=== PATIENT | male | born 1955 | race Caucasian/White ===

== ENCOUNTER 2024-08-05 16:16 | Inpatient (IN) | payer MEDICARE, OTHER ==
--- NOTE | 2024-08-05 16:43 | ED ---
Fall HPI - General Source: patient, RN notes reviewed, old records reviewed Mode of arrival: wheelchair Limitations: physical limitation <Marielle Palacios - Last Filed: 08/05/24 16:42> <Livan Bah - Last Filed: 08/05/24 23:36> - General Stated Complaint: fall no thinners Time Seen by Provider: 08/05/24 16:42 - History of Present Illness Initial Comments: Quick note: 69-year-old male presented the ER for evaluation of a fall. Family stated a week ago patient reports he fell. Since then family report he has been favoring his right side. While giving patient a shower today they noted bruising to left thigh and elbow. Patient denies head injury or blood thinner use. (Marielle Palacios) Patient is a 69-year-old male presents emergency department complaining of fall, weakness, worsening debility. Brought in by family who are the primary care givers for the patient. Apparently patient has been requiring more ADLs assistance lately and is having a harder time ambulating. He at baseline has a hard time ambulating from prior stroke and uses a walker. He has fallen a few times. Did not hit his head. He currently is at mental status baseline. Family says it is from prior stroke apparently. He otherwise is acting normally. Presents for further evaluation. Originally seen as a quick note and imaging was obtained. He is not on any blood thinners. They did notice bruising of the left thigh and elbow which is why imaging was obtained but ultimately they are looking for placement as they believe they can no longer take care of him. History is all obtained from patient's family member who is a t bedside. (Livan Bah) - Related Data Home Medications Medication Instructions Recorded Confirmed No Known Home Medications 08/05/24 08/05/24 Allergies Allergy/AdvReac Type Severity Reaction Status Date / Time No Known Allergies Allergy Verified 08/05/24 19:44 Review of Systems ROS Other: All systems not noted in ROS Statement are negative. <Marielle Palacios - Last Filed: 08/05/24 16:42> ROS Other: All systems not noted in ROS Statement are negative. <Livan Bah - Last Filed: 08/05/24 23:36> ROS Statement: Those systems with pertinent positive or pertinent negative responses have been documented in the HPI. Review of Systems: CONST: Denies fever EYES: Denies blurry vision ENT: Denies nasal congestion C/V: Denies Chest pain RESP: Denies shortness of breath GI: Denies abdominal pain : Denies dysuria SKIN: Denies rash. MSK: Denies joint pain. NEURO: Denies headache (Livan Bah) General Exam <Marielle Palacios - Last Filed: 08/05/24 16:42> <Livan Bah - Last Filed: 08/05/24 23:36> - General Exam Comments Initial Comments: Visual Physical Exam Vital signs reviewed General: Well-appearing, nontoxic, no acute distress. Resting tremor Head: Normocephalic, atraumatic Eyes: PERRLA, EOMI ENT: Airway patent Chest: Nonlabored breathing Skin: No visual rash, normal skin tone Neuro: Alert and oriented 3 Musculoskeletal: No gross abnormalities (Marielle Palacios) General: Appears in no acute distress. HEAD: Normal with no signs of head trauma. EYES: PERRLA, EOMI, conjunctiva normal, no discharge. Pupils are 3 mm and equal bilaterally. ENT: Hearing grossly intact, normal oropharynx. RESPIRATORY: Clear breath sounds bilaterally. No wheezes, rales, or rhonchi. C/V: Regular rate and rhythm. S1 and S2 auscultated, no edema, peripheral pulses 2+ and intact throughout ABD: Abd is soft, nontender, nondistended EXT: Normal range of motion, no obvious deformity SKIN: No rashes or lesions observed on exposed skin. NEURO: Alert. Nonverbal. No obvious focal deficits. Moving all 4 extremities. Apparently per family this is baseline. (Livan Bah) Course Vital Signs 08/05/24 08/05/24 16:59 22:31 Temperature 98.2 F Pulse Rate 82 79 Respiratory 20 16 Rate Blood Pressure 143/83 132/79 O2 Sat by Pulse 96 95 Oximetry Medical Decision Making <Marielle Palacios - Last Filed: 08/05/24 16:42> - Lab Data Result diagrams: 08/05/24 20:30 08/05/24 20:30 - EKG Data -: EKG Interpreted by Me <Livan Bah - Last Filed: 08/05/24 23:36> - Medical Decision Making I performed the quick note portion of this chart. Electronically signed by Wili Palacios PA-C (Marielle Palacios) Was pt. sent in by a medical professional or institution ([facility], [employer], urgent care, hospital, or snf...) When possible be specific @ -No Did you speak to anyone other than the patient for history (EMS, parent, family, police, friend...)? What history was obtained from this source @ -Patient's family who is at bedside are the primary historians for the patient as he is somewhat nonverbal and cannot provide any sufficient history. Per family, this is baseline for the patient. States it is from prior stroke. Did you review nursing and triage notes (agree or disagree)? Why? @ -I reviewed and agree with nursing and triage notes Were old charts reviewed (outside hosp., previous admission, EMS record, old EKG, old radiological studies, urgent care reports/EKG's, snf records)? Report findings @ -No old charts were reviewed Differential Diagnosis (chest pain, altered mental status, abdominal pain women, abdominal pain men, vaginal bleeding, weakness, fever, dyspnea, syncope, headache, dizziness, GI bleed, back pain, seizure, CVA, palpatations, mental health, musculoskeletal)? @ -Debility, fall, muscle strain, contusion. This list is not all inclusive. EKG interpreted by me (3pts min.). @ -As above X-rays interpreted by me (1pt min.). @ -Chest x-ray, femur x-ray, humerus x-ray, forearm x-ray negative for any obvious acute injury or process. CT interpreted by me (1pt min.). @ -None done U/S interpreted by me (1pt. min.). @ -None done What testing was considered but not performed or refused? (CT, X-rays, U/S, labs)? Why? @ -None What meds were considered but not given or refused? Why? @ -None Did you discuss the management of the patient with other professionals (professionals i.e. [facility], [employer], lab, RT, psych nurse, social work professor, real property appraiser, teacher, chief nursing officer, case managers)? Give summary @ -Discussed with the admitting provider, Dr. Smith who accepted the admission. Was smoking cessation discussed for >3mins.? @ -No Was critical care preformed (if so, how long)? @ -No Were there social determinants of health that impacted care today? How? (Homelessness, low income, unemployed, alcoholism, drug addiction, transportation, low edu. Level, literacy, decrease access to med. care, alf, rehab)? @ -No Was there de-escalation of care discussed even if they declined (Discuss DNR or withdrawal of care, Hospice)? DNR status @ -No What co-morbidities impacted this encounter? (DM, HTN, Smoking, COPD, CAD, Cancer, CVA, ARF, Chemo, Hep., AIDS, mental health diagnosis, sleep apnea, mo rbid obesity)? @ -Debility Was patient admitted / discharged? Hospital course, mention meds given and route, prescriptions, significant lab abnormalities, going to OR and other pertinent info. @ -Patient presents emergency department with worsening debility, requiring more help with ADLs at home. This has been progressive. Also fell recently. Imaging obtained in triage for some bruising of the left hip as well as left arm which returned negative. Patient will be given Tylenol. Due to the the desire for placement per family, we will obtain basic labs as well as chest x-ray and screening EKG. Vitals are within acceptable limits. Patient will be admitted to the hospital. Labs returned unremarkable. EKG unremarkable. Chest x-ray unremarkable. Discussed case with the admitting provider, Dr. Smith who accepted the admission. PT and OT consulted. Undiagnosed new problem with uncertain prognosis? @ -No Drug Therapy requiring intensive monitoring for toxicity (Heparin, Nitro, Insu elis, Cardizem)? @ -No Were any procedures done? @ -No Diagnosis/symptom? @ -Placement, debility Acute, or Chronic, or Acute on Chronic? @ -Acute Uncomplicated (without systemic symptoms) or Complicated (systemic symptoms)? @ -Complicated Side effects of treatment? @ -No Exacerbation, Progression, or Severe Exacerbation? @ -No Poses a threat to life or bodily function? How? (Chest pain, [place], [place], pneumonia, PE, COPD, DKA, ARF, appy, cholecystitis, CVA, Diverticulitis, Homicidal, Suicidal, threat to staff... and all critical care pts) @ -Yes (Livan Bah) - Lab Data Lab Results 08/05/24 08/05/24 Range/Units 20:30 20:30 WBC 11.7 H (3.8-10.6) k/uL RBC 4.60 (4.30-5.90) m/uL Hgb 13.0 (13.0-17.5) gm/dL Hct 40.7 (39.0-53.0) % MCV 88.6 (80.0-100.0) fL MCH 28.4 (25.0-35.0) pg MCHC 32.0 (31.0-37.0) g/dL RDW 13.0 (11.5-15.5) % Plt Count 309 (150-450) k/uL MPV 6.8 Neutrophils % 78 % Lymphocytes % 12 % Monocytes % 6 % Eosinophils % 3 % Basophils % 0 % Neutrophils # 9.1 H (1.3-7.7) k/uL Lymphocytes # 1.4 (1.0-4.8) k/uL Monocytes # 0.7 (0-1.0) k/uL Eosinophils # 0.3 (0-0.7) k/uL Basophils # 0.0 (0-0.2) k/uL Sodium 139 (137-145) mmol/L Potassium 4.2 (3.5-5.1) mmol/L Chloride 102 (98-107) mmol/L Carbon Dioxide 30 (22-30) mmol/L Anion Gap 7 mmol/L BUN 12 (9-20) mg/dL Creatinine 0.47 L (0.66-1.25) mg/dL Est GFR (CKD-EPI)AfAm >90 (>60 ml/min/1.73 sqM) Est GFR (CKD-EPI)NonAf >90 (>60 ml/min/1.73 sqM) Glucose 98 (74-99) mg/dL Calcium 8.7 (8.4-10.2) mg/dL Total Bilirubin 0.8 (0.2-1.3) mg/dL AST 26 (17-59) U/L ALT 12 (4-49) U/L Alkaline Phosphatase 63 (38-126) U/L Total Protein 7.4 (6.3-8.2) g/dL Albumin 4.2 (3.5-5.0) g/dL - EKG Data EKG Comments: 12-lead Electrocardiogram Interpretation Note EKG was reviewed and interpreted by myself. 12-lead ECG performed at 2105 is interpreted by me as revealing normal sinus rhythm at a rate of 81 beats per minute. [place] is normal. QRS durations 102 ms, QTc is 400 ms. Poor EKG due to the patient's movement making this difficult to interpret. There is a lot of motion artifact.. There were no obvious ST or T wave abnormalities to suggest myocardial ischemia or injury. R wave progression across the precordium was satisfactory. By my interpretation this EKG is non-diagnostic for acute isc hemia. (Livan Bah) Disposition <Marielle Palacios - Last Filed: 08/05/24 16:42> Time of Disposition: 20:30 <Livan Bah - Last Filed: 08/05/24 23:36> Clinical Impression: Fall, Debility Disposition: ADMITTED IP TO THIS HOSP Condition: Stable
--- NOTE | 2024-08-05 17:47 | XR ---
EXAMINATION TYPE: XR humerus LT, XR forearm LT DATE OF EXAM: 08/05/2024 CLINICAL INDICATION: Male, 69 years old with history of fall one week ago, pain TECHNIQUE: Two views of the left humerus and forearm are obtained. COMPARISON: None. FINDINGS: Osseous structures are demineralized. There is no acute fracture or dislocation seen in the left humerus or forearm. Severe degenerative change in the left wrist is present along the radial as pect. Left shoulder and elbow joints are grossly within normal limits. Overlying soft tissue is unrem arkable. IMPRESSION: No acute fracture or dislocation is evident in the left humerus or forearm. [facility], , 08/05/2024 5:44 PM
--- NOTE | 2024-08-05 17:48 | XR ---
EXAMINATION TYPE: XR femur LT DATE OF EXAM: 08/05/2024 CLINICAL INDICATION: Male, 69 years old with history of fall one week ago, pain TECHNIQUE: Two views of the left femur are obtained. COMPARISON: None FINDINGS: Osseous structures are demineralized. There is no acute fracture or dislocation seen in the left femur. Moderate degenerative changes in the left knee are seen. There is arteriovascular calcif ication medially noted. IMPRESSION: There is no acute fracture or dislocation in the left femur. [facility], , 08/05/2024 5:46 PM
[2024-08-05] MEDS: ACETAMINOPHEN TAB 500 MG TAB PO STA (20:13)
[2024-08-05 20:37] LABS: Basophils % (A) 0 %; Eosinophils # (A) 0.3 k/uL (0-0.7); Eosinophils % (A) 3 %; HCT 40.7 % (39.0-53.0); Lymphocytes # (A) 1.4 k/uL (1.0-4.8); Lymphocytes % (A) 12 %; MCH 28.4 pg (25.0-35.0); MCV 88.6 fL (80.0-100.0); Mean Platelet Volume 6.8; Monocytes # (A) 0.7 k/uL (0-1.0); Monocytes % (A) 6 %; Neutrophils # (A) 9.1 k/uL (1.3-7.7); Neutrophils % (A) 78 %; Platelet Count 309 k/uL (150-450); WBC 11.7 k/uL (3.8-10.6)
[2024-08-05 20:54] LABS: ALT 12 U/L (4-49); AST 26 U/L (17-59); African American GFR (CKD) >90 (>60 ml/min/1.73 sqM); Albumin 4.2 g/dL (3.5-5.0); Alkaline Phosphatase 63 U/L (38-126); Anion Gap 7 mmol/L; Blood Urea Nitrogen 12 mg/dL (9-20); Calcium 8.7 mg/dL (8.4-10.2); Carbon Dioxide 30 mmol/L (22-30); Chloride 102 mmol/L (98-107); Glucose 98 mg/dL (74-99); Non-African American GFR(CKD) >90 (>60 ml/min/1.73 sqM); Sodium 139 mmol/L (137-145); Total Bilirubin 0.8 mg/dL (0.2-1.3); Total Protein 7.4 g/dL (6.3-8.2)
[2024-08-05 20:55] LABS: Potassium 4.2 mmol/L (3.5-5.1)
--- NOTE | 2024-08-05 20:55 | XR ---
EXAMINATION TYPE: XR chest 2V DATE OF EXAM: 08/05/2024 CLINICAL INDICATION: Male, 69 years old with history of Weakness, TECHNIQUE: Frontal and lateral views of the chest are obtained. COMPARISON: None FINDINGS: Underlying emphysematous change is present. There is no focal air space opacity, pleural ef fusion, or pneumothorax seen. The cardiac silhouette size is within normal limits. Underlying scolio sis is seen. IMPRESSION: Chronic emphysematous change without acute pulmonary process. [facility], , 08/05/2024 8:52 PM
[2024-08-05] MEDS: SODIUM CHLORIDE 0.9% 1,000 ML IV SCH (21:09)
[2024-08-05] MEDS ORDERED: NALOXONE 0.4 MG/ML 1 ML VIAL IV PRN (21:13)
[2024-08-05] MEDS ORDERED: ACETAMINOPHEN TAB 325 MG TAB PO PRN (21:22)
--- NOTE | 2024-08-05 23:41 | P.HPIM ---
History of Present Illness H&P Date: 08/05/24 Chief Complaint: Fall Patient is a 69-year-old male with a PMH of TIA presenting to the ED after a fall. Patient is poor historian. Attempted to contact next of kin but was left on voicemail. Per ED note, family states he fell a week ago and has been favoring his right side. They noticed while giving him a shower that there was some bruising on his left thigh and elbow. Patient denies any head trauma or any head trauma. Patient denies any chest pain, abdominal pain. The patient has reportedly been showing signs of pain with ambulation. Informed by the ED provider that the family had expressed concerns regarding their ability to care for him. They were interested in placement options. EKG independently interpreted displaying sinus rhythm, rate 81 bpm, QTc 400 ms CXR independently interpreted displays no acute cardiopulmonary process XR left femur displaying no acute fracture or dislocation of the left femur XR left humerus/left forearm displaying no acute fracture or dislocation and left humerus or forearm WBC 11.7, Hgb 13, platelet 309, sodium 139, potassium 4.2, CO2 30, BUN 12, creatinine 0.47 T 98.2 F, W[place] 82, RR 20, BP 143/83, O2 saturation 96% on room ED documentation reviewed. Review of systems: Pertinent positives and negatives as discussed in HPI, a complete review of systems was performed and all other systems are negative. Social history: Tobacco: Current day smoker Alcohol: Occasional alcohol use Recreational drugs: Denies illicit drug Physical examination: Vital signs reviewed General: non toxic, no distress, appears at stated age, resting tremor Derm: no unusual rashes/lesions, warm Head: atraumatic, normocephalic, symmetric Eyes: EOMI, anicteric sclera, pupils equal round reactive to light ENT: Nose and ears atraumatic Mouth: no lip lesion, mucus membranes moist Cardiovascular: S1S2 reg, no murmur, positive dorsalis pedis pulse bilateral, no edema Lungs: CTA bilateral, no rhonchi, no rales, no accessory muscle use Abdominal: soft, nontender to palpation, no guarding Ext: muscle strength 3 out of 5 in b/l LE extremities on hip flexion & extension, no gross muscle atrophy Neuro: CN II-XI grossly intact, no gross focal neuro deficits Psych: Alert, non-verbal, oriented to person, place, and time, follows commands and answer simple questions - is at baseline per family Assessment/Plan: Patient is a 69-year-old male with a PMH of TIA presenting to the ED after a fall. #. Weakness/debility XR left femur displaying no acute fracture or dislocation of the left femur XR left humerus/left forearm displaying no acute fracture or dislocation and left humerus or forearm PT/OT consult Discuss with case management regarding placement #. Leukocytosis Likely reactive in the setting of acute stress Patient afebrile, displaying no signs of infection UA pending F: NS at 75 cc an hour E: Replete electrolytes as needed N: Regular diet A: Ambulatory at baseline DVT prophylaxis: Lovenox 40 SQ day The patient is admitted with an anticipated last than 2 midnight stay for evaluation of fall secondary to weakness/debility. CODE STATUS: Full code Discussed with: Patient Anticipated discharge place: Pending clinical course Neymar Blank MD PGY-1 IM Dictation was produced using [employer] dictation software. please excuse any grammatical, word or spelling errors. Past Medical History Additional Past Medical History / Comment(s): TIA History of Any Multi-Drug Resistant Organisms: None Reported Past Surgical History: No Surgical Hx Reported Past Psychological History: No Psychological Hx Reported Smoking Status: Current every day smoker Past Alcohol Use History: None Reported, Occasional Past Drug Use History: None Reported Medications and Allergies Home Medications Medication Instructions Recorded Confirmed Type No Known Home Medications 08/05/24 08/05/24 History Allergies Allergy/AdvReac Type Severity Reaction Status Date / Time No Known Allergies Allergy Verified 08/05/24 19:44 Physical Exam Vitals: Vital Signs Temp Pulse Resp BP Pulse Ox 08/05/24 22:31 79 16 132/79 95 08/05/24 16:59 98.2 F 82 20 143/83 96 Intake and Output 08/05/24 08/05/24 08/05/24 06:59 14:59 22:59 Other: Weight 45.359 kg Results CBC & Chem 7: 08/05/24 20:30 08/05/24 20:30 Labs: Abnormal Lab Results - Last 24 Hours (Table) 08/05/24 08/05/24 Range/Units 20:30 20:30 WBC 11.7 H (3.8-10.6) k/uL Neutrophils # 9.1 H (1.3-7.7) k/uL Creatinine 0.47 L (0.66-1.25) mg/dL
[2024-08-06 01:13] LABS: Appearance,Urine Clear (Clear); Bilirubin,Urine Negative (Negative); Blood,Urine Negative (Negative); Color,Urine Yellow; Glucose,Urine (UA) Negative (Negative); Ketones,Urine Negative (Negative); Leukocyte Esterase,Urine Negative (Negative); Nitrite,Urine Negative (Negative); Protein,Urine Trace (Negative); Specific Gravity,Urine 1.034 (1.001-1.035)
[2024-08-06 06:44] LABS: Basophils % (A) 0 %; Eosinophils # (A) 0.3 k/uL (0-0.7); Eosinophils % (A) 2 %; HCT 43.5 % (39.0-53.0); HGB 13.3 gm/dL (13.0-17.5); Lymphocytes # (A) 1.2 k/uL (1.0-4.8); Lymphocytes % (A) 10 %; MCH 27.8 pg (25.0-35.0); MCHC 30.5 g/dL (31.0-37.0); MCV 91.1 fL (80.0-100.0); Mean Platelet Volume 7.2; Monocytes # (A) 0.7 k/uL (0-1.0); Monocytes % (A) 6 %; Neutrophils # (A) 9.2 k/uL (1.3-7.7); Neutrophils % (A) 79 %; Platelet Count 293 k/uL (150-450); RBC 4.77 m/uL (4.30-5.90); RDW 13.2 % (11.5-15.5); WBC 11.6 k/uL (3.8-10.6)
[2024-08-06 07:00] LABS: ALT 10 U/L (4-49); AST 16 U/L (17-59); African American GFR (CKD) >90 (>60 ml/min/1.73 sqM); Albumin 3.4 g/dL (3.5-5.0); Alkaline Phosphatase 80 U/L (38-126); Anion Gap 5 mmol/L; Blood Urea Nitrogen 10 mg/dL (9-20); Calcium 8.9 mg/dL (8.4-10.2); Carbon Dioxide 30 mmol/L (22-30); Chloride 103 mmol/L (98-107); Glucose 94 mg/dL (74-99); Non-African American GFR(CKD) >90 (>60 ml/min/1.73 sqM); Potassium 3.9 mmol/L (3.5-5.1); Sodium 138 mmol/L (137-145); Total Bilirubin 1.1 mg/dL (0.2-1.3); Total Protein 6.2 g/dL (6.3-8.2)
[2024-08-06] MEDS: ENOXAPARIN 40 MG/0.4 ML SYRINGE SQ SCH (08:40)
[2024-08-06] MEDS: NICOTINE 14MG/24HR PATCH TRANSDERM SCH (10:33)
--- NOTE | 2024-08-06 11:43 | P.PN ---
Subjective Progress Note Date: 08/06/24 69-year-old male with a PMH of TIA presenting to the ED after a fall. Patient is poor historian. Attempted to contact next of kin but was left on voicemail. Per ED note, family states he fell a week ago and has been favoring his right side. They noticed while giving him a shower that there was some bruising on his left thigh and elbow. Patient denies any head trauma or any head trauma. Patient denies any chest pain, abdominal pain. The patient has reportedly been showing signs of pain with ambulation. Informed by the ED provider that the family had expressed concerns regarding their ability to care for him. They were interested in placement options. 08/06 - Patient seen at bedside this morning, now on the 4th floor. Earlier this morning, the nurse was able to contact the patient's family who at the time requested that he be made a DNR. Awaiting evaluation by occupational physical therapy. He has no acute complaints at this time. He is only able to respond to mostly simple questions with yes/no responses. REVIEW OF SYSTEMS: Pertinent positives and negatives noted in HPI. Physical examination: Vital signs reviewed General: non toxic, no distress, appears at stated age, resting tremor Derm: no unusual rashes/lesions, warm Head: atraumatic, normocephalic, symmetric Eyes: EOMI, anicteric sclera, pupils equal round reactive to light ENT: Nose and ears atraumatic Mouth: no lip lesion, mucus membranes moist Cardiovascular: S1S2 reg, no murmur, positive dorsalis pedis pulse bilateral, no edema Lungs: CTA bilateral, no rhonchi, no rales, no accessory muscle use Abdominal: soft, nontender to palpation, no guarding Ext: muscle strength 3 out of 5 in b/l LE extremities on hip flexion & extension, no gross muscle atrophy Neuro: CN II-XI grossly intact, no gross focal neuro deficits Psych: Alert, non-verbal, oriented to person, place, and time, follows commands and answer simple questions - is at baseline per family Data Received Today: Labs: WBCs 11.6, hemoglobin 13.3, hematocrit 43.5, platelet 293; sodium 138, potassium 3.9, BUN 10, creatinine 0.58, total bilirubin 1.1, AST 16, ALT 10, alkaline phosphatase 80 Imagining: No new imaging today Assessment and plan Patient is a 69-year-old male with a PMH of TIA presenting to the ED after a fall. #Weakness/debility -XR left femur displaying no acute fracture or dislocation of the left femur -XR left humerus/left forearm displaying no acute fracture or dislocation and left humerus or forearm -PT/OT consult -Discuss with case management regarding placement #Leukocytosis -Likely reactive in the setting of acute stress -Patient afebrile, displaying no signs of infection -UA unremarkable #Nicotine dependence -Started on nicotine 14 mg/24-hour patch F: NS at 75 cc an hour E: Replete electrolytes as needed N: Regular diet A: Ambulatory at baseline DVT prophylaxis: Lovenox 40 SQ day Code status: No code Anticipated discharge place: Pending clinical course Anticipated discharge time: 2-3 days Dictation was produced using [employer] dictation software. please excuse any grammatical, word or spelling errors. Hay Crawford MD PGY-1 IM I have seen and evaluated the patient today. Discussed with the resident and agree with the residents finding and plan as documented in the resident's note. Changes highlighted in blue font. Objective - Vital Signs Vital signs: Vital Signs Temp 97.3 F L 08/06/24 07:16 Pulse 93 08/06/24 07:16 Resp 16 08/06/24 07:16 BP 142/84 08/06/24 07:16 Pulse Ox 92 L 08/06/24 07:16 FiO2 Intake & Output 08/05/24 08/06/24 08/06/24 18:59 06:59 18:59 Output Total 150 Balance -150 Weight 45.359 kg 45.359 kg Output: Urine 150 - Labs CBC & Chem 7: 08/06/24 06:25 08/06/24 06:25 Labs: Abnormal Lab Results - Last 24 Hours (Table) 08/05/24 08/05/24 08/06/24 Range/Units 20:30 20:30 01:05 WBC 11.7 H (3.8-10.6) k/uL MCHC (31.0-37.0) g/dL Neutrophils # 9.1 H (1.3-7.7) k/uL Creatinine 0.47 L (0.66-1.25) mg/dL AST (17-59) U/L Total Protein (6.3-8.2) g/dL Albumin (3.5-5.0) g/dL Urine Protein Trace H (Negative) 08/06/24 08/06/24 Range/Units 06:25 06:25 WBC 11.6 H (3.8-10.6) k/uL MCHC 30.5 L (31.0-37.0) g/dL Neutrophils # 9.2 H (1.3-7.7) k/uL Creatinine 0.58 L (0.66-1.25) mg/dL AST 16 L (17-59) U/L Total Protein 6.2 L (6.3-8.2) g/dL Albumin 3.4 L (3.5-5.0) g/dL Urine Protein (Negative)
--- NOTE | 2024-08-06 15:30 | CDI ---
Documentation Clarification Form Date: 08/06/2024 02:55:15 PM From: Alecia Granados RN, CCDS Phone: [phone] Admit Date: 08/05/2024 09:14:00 PM Patient Name: Deuce Jett Visit Number: [id number] Discharge Date: ATTENTION: The Clinical Documentation Specialists (CDI) and [facility] Coding Staff appreciate your assistance in clarifying documentation. Please respond to the clarification below the line at the bottom and electronically sign. The CDI & [facility] Coding staff will review the response and follow-up if needed. Please note: Queries are made part of the Legal Health Record. If you have any questions, please contact the author of this message via ITS. Doctor.Cuco Hutchinson MD Your patient has the documented symptom of weakness with debility per H/P and subsequent progress notes. Additional clarification regarding the etiology/cause of this symptom is requested. History/Risk Factors: TIA Falls, Clinical Indicators 69-year-old male admitted d/t fall, weakness, worsening debility. He has expressive aphasic-can get out a few words. He is maximum assist with bathing dressing lower body, feeding, and toileting. He has decreased strength and endurance with incoordination and ataxia with ambulation per PT/OT assessment. Treatment: PT Eval and treat OT Eval and treat .9NS @75 ML/HR Is there a corresponding diagnosis/etiology for this symptom of weakness? [ x ] Age related physical debility [ ] Age related cognitive decline [ ] Unable to determine [ ] Other, please specify (Template Last Reviewed: June 2020) MTDD
[2024-08-06 15:38] VITALS: BMI 15.6
--- NOTE | 2024-08-06 16:10 | CDI ---
Documentation Clarification Form Date: 08/06/2024 04:05:39 PM From: Alecia Granados RN, CCDS Phone: [phone] Admit Date: 08/05/2024 09:14:00 PM Patient Name: Deuce Jett Visit Number: [id number] Discharge Date: ATTENTION: The Clinical Documentation Specialists (CDI) and [facility] Coding Staff appreciate your assistance in clarifying documentation. Please respond to the clarification below the line at the bottom and electronically sign. The CDI & [facility] Coding staff will review the response and follow-up if needed. Please note: Queries are made part of the Legal Health Record. If you have any questions, please contact the author of this message via ITS. DoctorRoslyn Hutchinson The Registered Dietitian assessment on 08/06/24 indicates this patient meets criteria for malnutrition chronic, severe. Based on this information and the findings below, is there an additional diagnosis that is clinically appropriate for this patient? History/Risk Factors: TIA, Falls, current smoker Clinical Indicators: 69-year-old male admitted d/t fall, weakness, worsening debility Current BMI: 15.7 5 ft. 7 in Nutrition intake: Poor difficulty feeding self. Under weight RD Consult Assessment: Malnutrition chronic, severe decreased intake 2/2 difficulty feeding s/p TIA muscle wasting, fat wasting, fat wasting to triceps region Treatment: General/healthful diet Ensure Enlive BID Is there an additional diagnosis that is clinically appropriate for this patient? [ ] Mild Protein-Calorie Malnutrition [ x ] Moderate Protein-Calorie Malnutrition [ ] Severe Protein-Calorie Malnutrition [ ] No additional diagnosis/Not clinically significant [ ] Other condition, please specify [ ] Unable to Determine (Template Last Revised: November 2022) MTDD
[2024-08-07 06:39] LABS: Basophils % (A) 0 %; Eosinophils # (A) 0.2 k/uL (0-0.7); Eosinophils % (A) 3 %; HCT 36.5 % (39.0-53.0); Lymphocytes # (A) 1.5 k/uL (1.0-4.8); Lymphocytes % (A) 20 %; MCH 29.3 pg (25.0-35.0); MCHC 32.9 g/dL (31.0-37.0); MCV 89.1 fL (80.0-100.0); Mean Platelet Volume 6.8; Monocytes # (A) 0.6 k/uL (0-1.0); Monocytes % (A) 7 %; Neutrophils # (A) 5.3 k/uL (1.3-7.7); Neutrophils % (A) 68 %; Platelet Count 223 k/uL (150-450); WBC 7.8 k/uL (3.8-10.6)
[2024-08-07 06:51] LABS: African American GFR (CKD) >90 (>60 ml/min/1.73 sqM); Anion Gap 1 mmol/L; Blood Urea Nitrogen 6 mg/dL (9-20); Calcium 8.3 mg/dL (8.4-10.2); Carbon Dioxide 30 mmol/L (22-30); Chloride 104 mmol/L (98-107); Glucose 89 mg/dL (74-99); Non-African American GFR(CKD) >90 (>60 ml/min/1.73 sqM); Potassium 3.9 mmol/L (3.5-5.1); Sodium 135 mmol/L (137-145)
[2024-08-07] MEDS: PSYLLIUM HUSK 100% 6 GM PACKET PO SCH (12:29)
--- NOTE | 2024-08-07 12:35 | P.PN ---
Subjective Progress Note Date: 08/07/24 69-year-old male with a PMH of TIA presenting to the ED after a fall. Patient is poor historian. Attempted to contact next of kin but was left on voicemail. Per ED note, family states he fell a week ago and has been favoring his right side. They noticed while giving him a shower that there was some bruising on his left thigh and elbow. Patient denies any head trauma or any head trauma. Patient denies any chest pain, abdominal pain. The patient has reportedly been showing signs of pain with ambulation. Informed by the ED provider that the family had expressed concerns regarding their ability to care for him. They were interested in placement options. 08/06 - Patient seen at bedside this morning, now on the 4th floor. Earlier this morning, the nurse was able to contact the patient's family who at the time requested that he be made a DNR. Awaiting evaluation by occupational physical therapy. He has no acute complaints at this time. He is only able to respond to mostly simple questions with yes/no responses. 08/07 - Patient seen and examined at bedside this morning. No events overnight, no acute complaints this morning. Has had normal urine, with the assistance of external catheter. However has not a bowel movement. Added Metamucil 6 g daily pelvis with bowel movement. REVIEW OF SYSTEMS: Pertinent positives and negatives noted in HPI. Physical examination: Vital signs reviewed General: non toxic, no distress, appears at stated age, resting tremor Derm: no unusual rashes/lesions, warm Head: atraumatic, normocephalic, symmetric Eyes: EOMI, anicteric sclera, pupils equal round reactive to light ENT: Nose and ears atraumatic Mouth: no lip lesion, mucus membranes moist Cardiovascular: S1S2 reg, no murmur, positive dorsalis pedis pulse bilateral, no edema Lungs: CTA bilateral, no rhonchi, no rales, no accessory muscle use Abdominal: soft, nontender to palpation, no guarding Ext: muscle strength 3 out of 5 in b/l LE extremities on hip flexion & extension, severe muscle wasting and fat wasting Neuro: CN II-XI grossly intact, no gross focal neuro deficits Psych: Alert, non-verbal, oriented to person, place, and time, follows commands and answer simple questions - is at baseline per family Data Received Today: Labs: WBC 7.8, hemoglobin 12.0, hematocrit 36.5, platelet 223; sodium 135, potassium 3.9, BUN 6, creatinine 0.53, calcium 8.3 Imagining: No new imaging today Assessment and plan Patient is a 69-year-old male with a PMH of TIA presenting to the ED after a fall. #Weakness, likely secondary to a combination of age-related physical debility and s/p TIA -XR left femur displaying no acute fracture or dislocation of the left femur -XR left humerus/left forearm displaying no acute fracture or dislocation and left humerus or forearm -PT/OT consult -Discuss with case management regarding placement #Severe, chronic proteincalorie malnutrition, secondary to decreasing intake and difficulty feeding s/p TIA -Severe muscle wasting, fat wasting and fat wasting to the tricep region -Additional nutritional supplementation twice daily #Leukocytosis -Likely reactive in the setting of acute stress -Patient afebrile, displaying no signs of infection -UA unremarkable #Nicotine dependence -Started on nicotine 14 mg/24-hour patch #Constipation -Initiated Metamucil 6 g daily F: NS at 75 cc an hour E: Replete electrolytes as needed N: Regular diet A: Ambulatory at baseline DVT prophylaxis: Lovenox 40 SQ day Code status: No code Anticipated discharge place: Subacute rehab Anticipated discharge time: Tomorrow Dictation was produced using [employer] dictation software. please excuse any grammatical, word or spelling errors. Hay Crawford MD PGY-1 IM I have seen and evaluated the patient today. Discussed with the resident and agree with the residents finding and plan as documented in the resident's note. Changes highlighted in blue font. Objective - Vital Signs Vital signs: Vital Signs Temp 98.2 F 08/07/24 02:00 Pulse 98 08/07/24 02:00 Resp 18 08/07/24 02:00 BP 117/84 08/07/24 02:00 Pulse Ox 91 L 08/06/24 13:23 FiO2 Intake & Output 08/06/24 08/07/24 08/07/24 18:59 06:59 18:59 Intake Total 900 Output Total 200 50 Balance 700 -50 Weight 45.359 kg Intake: Intake, IV Titration 900 Amount Sodium Chloride 0.9% 1, 900 000 ml @ 75 mls/hr IV . [id number] [facility] Rx#:[id number] Output: Urine 200 50 Other: Voiding Method External Catheter External Catheter - Labs CBC & Chem 7: 08/07/24 06:20 08/07/24 06:19 Labs: Abnormal Lab Results - Last 24 Hours (Table) 08/07/24 08/07/24 Range/Units 06:19 06:20 RBC 4.10 L (4.30-5.90) m/uL Hgb 12.0 L (13.0-17.5) gm/dL Hct 36.5 L (39.0-53.0) % Sodium 135 L (137-145) mmol/L BUN 6 L (9-20) mg/dL Creatinine 0.53 L (0.66-1.25) mg/dL Calcium 8.3 L (8.4-10.2) mg/dL
[2024-08-08 08:58] VITALS: BP 110/51; PULSE 63; RESP 19; TEMP 98.2
--- NOTE | 2024-08-08 10:32 | P.DS ---
Providers Date of admission: 08/05/24 21:14 Attending physician: Carlos Smith MD Primary care physician: Raciel Mandujano MD Hospital Course: I have seen and evaluated the patient today. Discussed with the resident and agree with the residents finding and plan as documented in the resident's note. Changes highlighted in blue font. Discharge diagnoses; #Weakness, likely secondary to a combination of age-related physical debility a nd s/p TIA #Severe, chronic proteincalorie malnutrition, secondary to decreasing intake and difficulty feeding s/p TIA #Leukocytosis #Nicotine dependence #Constipation Hospital course; 69-year-old male with a PMH of TIA presenting to the ED after a fall. Patient is poor historian. Attempted to contact next of kin but was left on voicemail. Per ED note, family states he fell a week ago and has been favoring his right side. They noticed while giving him a shower that there was some bruising on his left thigh and elbow. Patient denies any head trauma or any head trauma. Patient denies any chest pain, abdominal pain. The patient has reportedly been showing signs of pain with ambulation. Informed by the ED provider that the family had expressed concerns regarding their ability to care for him. He has had no acute complaints or incidents since his arrival. Discussed with case monitor, plan in place for him to be discharged to [facility] at the time of discharge. It was determined that he would be eligible for send discharged on 08/08/2024. He, and his family are excited for him to be discharged there today. Recommend to continue Ensure after discharge, bid Physical examination: Vital signs reviewed General: non toxic, no distress, appears at stated age, resting tremor Derm: no unusual rashes/lesions, warm Head: atraumatic, normocephalic, symmetric Eyes: EOMI, anicteric sclera, pupils equal round reactive to light ENT: Nose and ears atraumatic Mouth: no lip lesion, mucus membranes moist Cardiovascular: S1S2 reg, no murmur, positive dorsalis pedis pulse bilateral, no edema Lungs: CTA bilateral, no rhonchi, no rales, no accessory muscle use Abdominal: soft, nontender to palpation, no guarding Ext: muscle strength 3 out of 5 in b/l LE extremities on hip flexion & extension, severe muscle wasting and fat wasting Neuro: CN II-XI grossly intact, no gross focal neuro deficits Psych: Alert, non-verbal, oriented to person, place, and time, follows commands and answer simple questions - is at baseline per family Dictation was produced using [employer] dictation software. please excuse any grammatical, word or spelling errors. Hay Crawford MD PGY-1 IM Patient Condition at Discharge: Stable Plan - Discharge Summary Discharge Rx Participant: Yes New Discharge Prescriptions: Continue No Known Home Medications Discharge Medication List No Known Home Medications 08/05/24 [History] Follow up Appointment(s)/Referral(s): Raciel Mandujano MD [Primary Care Provider] - 1-2 days Activity/Diet/Wound Care/Special Instructions: Recommend nutritional supplementation with Ensure, or similar drinks, between meals and a healthy, calorie rich diet. Discharge/Stand Alone Forms: Adult Foster Nursing Home List, Assisted Living Facilities, Help In The Home, Personal Retail Seasonal Specialist Discharge Disposition: TRANSFER TO SNF/ECF
--- NOTE | 2024-08-12 16:45 | CDI ---
Documentation Clarification Form Date: 08/12/2024 04:33:23 PM From: Alecia Granados RN, CCDS Phone: [phone] Admit Date: 08/05/2024 09:14:00 PM Patient Name: Deuce Jett Visit Number: [id number] Discharge Date: 08/08/2024 11:23:00 AM ATTENTION: The Clinical Documentation Specialists (CDI) and [facility] Coding Staff appreciate your assistance in clarifying documentation. Please respond to the clarification below the line at the bottom and electronically sign. The CDI & [facility] Coding staff will review the response and follow-up if needed. Please note: Queries are made part of the Legal Health Record. If you have any questions, please contact the author of this message via ITS. Doctor. Crystal Shah Conflicting documentation has been found in the medical record. As attending physician, please provide clarification. 08/06/24 query response: Nhtqxhzv-Xyzyzht-Kdvuvht Malnutrition 08/08 Discharge summary: Severe, chronic protein-calorie malnutrition, secondary to decreasing intake and difficulty feeding s/p TIA History/Risk Factors: TIA, Falls, current smoker Clinical Indicators: 69-year-old male admitted d/t fall, weakness, worsening debility Current BMI: 15.7 5 ft. 7 in Nutrition intake: Poor difficulty feeding self. Under weight RD Consult Assessment: Malnutrition chronic, severe decreased intake 2/2 difficulty feeding s/p TIA muscle wasting, fat wasting, fat wasting to triceps region Treatment: General/healthful diet Ensure Enlive BID Please clarify which diagnosis is most appropriate: [ x ] Severe, chronic protein-calorie malnutrition, secondary to decreasing intake and difficulty feeding s/p TIA [ ] Rfirpudj-Xymhnjo-Ykrrdnp Malnutrition [ ] Other (please specify) [ ] Unable to determine (Template Last Revised: July 2020) MTDD
== END 2024-08-08 11:23 | DRG 884 ==
LOC: EC 16:16 → 4SSUR 21:14
PROVIDERS: ADMIT Internal Medicine; ATTEND Internal Medicine
DX: R54 Age-related physical debility (principal); E43 Unspecified severe protein-calorie malnutrition; Z66 Do not resuscitate; Z68.1 Body mass index [BMI] 19.9 or less, adult; D72.829 Elevated white blood cell count, unspecified; F17.200 Nicotine dependence, unspecified, uncomplicated; K59.00 Constipation, unspecified; Z86.73 Personal history of transient ischemic attack (TIA), and cerebral infarction without residual deficits
CPT/HCPCS: 36415; 71046; 80048; 80053; 81003; 83735; 85025; 93005; 94760; 96360; 96361; 99285